=== PATIENT | male | born 1990 | race Caucasian/White ===

== ENCOUNTER → 2019-03-18 09:54 | Outpatient (BNVA) | payer BC, SELFPAY | PROVIDERS: Family Provider Family Medicine; PCP Family Medicine; Visit Provider Otolaryngology | DX: J33.9 Nasal polyp, unspecified (principal) | CPT/HCPCS: 96372; 99214; J3301 ==

== ENCOUNTER 2019-04-06 06:05 | Day surgery (SDC) | payer BC, SELFPAY ==
[2019-04-05 14:58] VITALS: BMI 33.2
[2019-04-06] VITALS (11 sets, daily range): BP systolic 138–173; BP diastolic 84–115; PULSE 75–101; RESP 14–20; TEMP 36.1–37.1; O2SAT 94–99
[2019-04-06] MEDS: sodium chloride 0.9% 1,000 ML 30 ML IV (06:46)
--- NOTE | 2019-04-06 06:46 | P.ANES_ITS ---
Pre-Anesthetic Assessment Pre-Anesthetic Assessment: Height/Weight: Height 1.83 m Weight 111.13 kg Temp Pulse Resp BP Pulse Ox 97 F L 85 18 138/84 96 04/06/19 06:15 04/06/19 06:15 04/06/19 06:15 04/06/19 06:15 04/06/19 06:15 Proposed Procedure: Operation Date: 04/06/19 07:20 Proposed Procedures p Endoscopic Endonasal Sinus Surgery Nasal Polypectomy 78241 J33.9(Not A pplicable) - Ricardo Marie M.D Last intake: Intake Last Liquid Date 04/05/19 Last Solid Date 04/05/19 Social: Social History: Alcohol and Tobacco (chews) Exam: Pre-Anes Outpt Exam: alert, oriented x 3, clear to auscultation bilaterally and regular rate & rhythm Airway: Submandibular: WNL Cervical ROM: WNL MP: 2 History/ROS: No significant history except as noted Pulmonary: Pulmonary: Asthma CV/HEM: CV/HEM: None reported : : None reported Hepatic: Hepatic: None reported GI: GI: GERD (occ) Metabolic: Metabolic: None reported Musc/skel: Musc/skel: None reported Neuropsych: Neuropsych: None reported Anesthetic Plan: Anesthesia: General Risk of > 500 ml blood loss (7ml/kg in children): No PFSH Anesthesia PFSH: Surgical History (Updated 04/06/19 @ 06:47 by Catracho Trinidad MD) History of sinus surgery (Acute) Social History (Updated 03/18/19 @ 10:06 by Sima Mirza LPN) Smoking and tobacco status: never smoked Alcohol intake: never Data Anesthesia Cardiac Studies: No Data to Display
--- NOTE | 2019-04-06 07:05 | PM.HPUD ---
H&P update H&P Update: DATE OF SURGERY/PROCEDURE: 04/06/19 DATE H&P PERFORMED: 04/04/19 H&P UPDATE INFORMATION: H&P completed within last 30 days PLANNED PROCEDURE: Operation Date: 04/06/19 07:20 Proposed Procedures p Endoscopic Endonasal Sinus Surgery Nasal Polypectomy 09048 J33.9(Not Applicable) - Ricardo Marie M.D Full H&P Medications/Allergies: Current Medications: Current Medications Generic Name Dose Route Start Last Admin Trade Name Freq PRN Reason Stop Dose Admin Sodium Chloride 1,000 mls @ 30 ml s/hr 04/06/19 06:30 04/06/19 06:46 Sodium Chloride 0.9% IV 04/07/19 06:29 30 mls/hr .Q24H DENY Administration Perinent History: Social History: Social History Smoking and tobacco status: never smoked Alcohol intake: never
[2019-04-06] MEDS: lidocaine 1% INJ 20 mL SUBCUT (08:14)
[2019-04-06] MEDS: EPINEPHrine 1 mg/mL INJ XX (08:15)
[2019-04-06] MEDS: oxymetazoline 0.05% Nasal Spray 15 mL 1 SPRAY NOSTRIL-B (08:17)
[2019-04-06] MEDS: hyDRALAzine 20 mg/mL INJ 1 mL 5 MG IVP ×3 (08:48→09:08)
--- NOTE | 2019-04-06 08:48 | PM.OP ---
Operative Report Date of procedure: 04/06/19 Post-op diagnosis: same Post-op Findings: Extensive nasal polyps, inspissated mucus right maxillary sinus chronic maxillary and ethmoid sinusitis on the right Procedure Done: Right nasal polypectomy using debrider, right endoscopic total ethmoidectomy, right maxillary sinusotomy with removal of diseased tissue Specimens removed/disposition: Nasal polyps, right ethmoid, right maxillary Surgeon: Ricardo Marie Anesthesia: General Estimated blood loss (mL): 20 Complications: None Findings: Extensive nasal polyps, chronic ethmoid and maxillary sinus disease Condition: stable Disposition: PACU Brief History: Mukund is a 22-year-old male with a past medical history significant for chronic pansinusitis and nasal polyposis and previous sinus surgery. He presents with relapse of his condition. Goals risks and alternatives were reviewed for consent was obtained Procedure: Patient was taken to the operating room and under satisfactory general endotracheal anesthesia the nose was draped and injected. Using a debrider the extensive intranasal polyps were removed with a combination of direct visualization, loupe magnification and 0 degree endoscopic magnification. Specimens were collected using the base and sent for histopathologic analysis. The normal anatomic landmarks were identified a total ethmoidectomy was performed using an 0 degree magnification. Extensive nasal polyps and chronic disease tissue was removed and the cribriform plate was identified and preserved. The lamina was also preserved. Loss of the right maxillary sinus was also opened, previous scar tissue was identified and extensive nasal polyps were encountered. Chronic inspissated green peanut butter like secretions were removed these were sent for general cultures and fungal cultures as well as histopathologic analysis. Intranasal packing was then placed. Patient tolerated procedure well. No complications occurred. He was allowed to awaken after his globes were palpated and were at preoperative levels. Postoperative care instructions and counseling were given during his recovery. Visual banerjee were at preoperative levels. Once the patient met discharge criteria and verbalized understanding of his preoperative and postoperative instructions he was discharged in satisfactory and stable condition with a prescription for Tylenol with codeine No. 50 one refill.
--- NOTE | 2019-04-06 08:55 | SUR.PHASEI ---
0800 PATIENT TO PACU AT THIS TIME VIA GURSESAR. RR EVEN AND UNLABORED. PWD. 4X4 WITH TAPE UNDER NOSE. SMALL AMOUNT OF BLOOD NOTED, DRESSING CHANGED.
--- NOTE | 2019-04-06 09:20 | SUR.PHASEI ---
0917 PATIENT TO OPS VIA GURNEY FROM PACU. RR EVEN AND UNLABORED. NASAL GAUZE DRY AND INTACT.
== END 2019-04-06 10:04 | disposition home or self-care (01) ==
PROVIDERS: Family Provider Family Medicine; PCP Family Medicine; Visit Provider Otolaryngology
PROC: (CPT 31231; principal; 2019-04-06 07:20)
DX: J33.9 Nasal polyp, unspecified (principal); J32.0 Chronic maxillary sinusitis; J45.909 Unspecified asthma, uncomplicated
CPT/HCPCS: 31255; 31267; 12345; 87070; 87077; 87102; 87107; 87176; 87186; 87205; 87206; 88305; 96365; J0131; J0171; J0330; J0360; J1100; J2001; J2250; J2405; J2704; J2710; J3010; J3490; J7030

== ENCOUNTER → 2019-04-21 08:58 | Outpatient (BNVA) | payer BC, SELFPAY | PROVIDERS: Family Provider Family Medicine; PCP Family Medicine; Visit Provider Otolaryngology | DX: J06.9 Acute upper respiratory infection, unspecified (principal); Z98.890 Other specified postprocedural states | CPT/HCPCS: 99213; 99214 ==